=== PATIENT | female | born 1970 | race Caucasian/White ===

== ENCOUNTER 2022-11-14 14:13 | Emergency (ER) | payer BC ==
[~2022-11-14] VITALS: Ht 167 cm; Wt 63.5 kg
[~2022-11-14 14:13] MED LIST: CIPR-226 PO; CIPR500T78 PO; HYDR-1231 PO; MIRA25TA PO; PHEN200T27 PO; SERT100T8 PO
[2022-11-14 14:59] LABS: BASOPHILS % (AUTO) 0 % (0-10); EOSINOPHILS % (AUTO) 0 % (0-10); HEMATOCRIT 34 % (35-52); HEMOGLOBIN 11.3 g/dL (11.5-16.0); LYMPHOCYTES # (AUTO) 0.8 X 10^3 (1.0-4.0); LYMPHOCYTES % (AUTO) 16 % (12-44); MEAN CORPUSCULAR HEMOGLOBIN 28 pg (25-34); MEAN CORPUSCULAR HGB CONC 33 g/dL (32-36); MEAN CORPUSCULAR VOLUME 85 fL (80-99); MEAN PLATELET VOLUME 9.8 fL (9.0-12.2); MONOCYTES # (AUTO) 0.2 X 10^3 (0.0-1.0); MONOCYTES % (AUTO) 3 % (0-12); NEUTROPHILS # (AUTO) 4.3 X 10^3 (1.8-7.8); NEUTROPHILS % (AUTO) 81 % (42-75); PLATELET COUNT 201 10^3/uL (130-400); WHITE BLOOD COUNT 5.3 10^3/uL (4.3-11.0)
[2022-11-14 15:09] LABS: POTASSIUM 4.1 MMOL/L (3.6-5.0)
[2022-11-14 15:11] LABS: CALCIUM 9.2 MG/DL (8.5-10.1)
[2022-11-14 15:15] LABS: CREATININE SERUM 0.94 MG/DL (0.60-1.30)
[2022-11-14 15:17] LABS: ERYTHROCYTE SEDIMENTATION RATE 12 MM/HR (0-30)
[2022-11-14] MEDS ORDERED: LACTATED RINGERS 1,000 ML IV ONE (15:45)
[2022-11-14] MEDS ORDERED: fentaNYL INJ 100 MCG/2 ML AMP IVP ONE (15:45)
--- NOTE | 2022-11-14 15:51 | ED General ---
General Chief Complaint: Lower Extremity Stated Complaint: LT HIP PAIN | POST OP HIP REPLACE - 5 WEEKS OUT Nursing Triage Note: PT PRESENTS TO ED WITH PAIN IN LEFT HIP AND FEVERISH CHILLS THAT BEGAN TODAY. PT HAD HIP REPLACEMENT 5 WEEKS AGO AND IS CONCERNED THE AREA IS INFECTED. PT HAS BEEN ABLE TO WALK WITHOUT ASSISTANCE AND PAIN-FREE FOR THE LAST 5 WEEKS, TODAY PT NEEDS CANE TO WALK. 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 Source of Information: Patient Exam Limitations: No Limitations History of Present Illness Date Seen by Provider: Nov 14, 2022 Allergies and Home Medications Allergies Coded Allergies: No Known Drug Allergies (Unverified , 11/28/13) Patient Home Medication List Ciprofloxacin HCl (Cipro) 250 Mg Tablet, 250 MG PO BID Prescribed by: FLORIDALMA SIMS on 01/01/14904 Mirabegron (Myrbetriq) 25 Mg Tab.er.24h, 25 MG PO DAILY, (Reported) Entered as Reported by: SHERRY VILLA on 11/28/13 0510 Phenazopyridine Hcl (Pyridium) 200 Mg Tablet, 1 EACH PO TID PRN PRN for SPASMS Prescribed by: FLORIDALMA SIMS on 01/01/14904 Sertraline Hcl (Sertraline Hcl) 100 Mg Tablet, 100 MG PO DAILY, (Reported) Entered as Reported by: SHERRY VILLA on 11/28/13 0510 Past Zucgwxf-Avhftx-Plwtiz Hx Patient Social History Tobacco Use?: No Substance use?: No Alcohol Use?: No Pt feels they are or have been: No Past Medical History Reproductive Disorders: No Bladder Infection Physical Exam Vital Signs Vital Signs - First Documented 11/14/22 14:23 Temp 36.7 Pulse 86 Resp 18 B/P (MAP) 92/67 (75) Pulse Ox 98 Capillary Refill : Height, Weight, BMI Height: 5'6.00" Weight: 137lbs. oz. [id number]; 22.00 BMI Method:Stated Focused Exam Lactate Level 11/14/22 16:05: Lactic Acid Level 1.41 Lactic Acid Level Laboratory Tests Test 11/14/22 16:05 Lactic Acid Level 1.41 MMOL/L (0.50-2.00) Progress/Results/Core Measures Suspected Sepsis SIRS Temperature: Pulse: 86 Respiratory Rate: 18 Laboratory Tests 11/14/22 14:50: White Blood Count 5.3 Blood Pressure 92 /67 Mean: 75 11/14/22 16:05: Lactic Acid Level 1.41 Laboratory Tests 11/14/22 14:50: Creatinine 0.94, Platelet Count 201 Results/Orders Lab Results Laboratory Tests Test 11/14/22 14:50 11/14/22 16:05 11/14/22 16:30 Range/Units White Blood Count 5.3 4.3-11.0 10^3/uL Red Blood Count 4.03 3.80-5.11 10^6/uL Hemoglobin 11.3 L 11.5-16.0 g/dL Hematocrit 34 L 35-52 % Mean Corpuscular Volume 85 80-99 fL Mean Corpuscular Hemoglobin 28 25-34 pg Mean Corpuscular Hemoglobin Concent 33 32-36 g/dL Red Cell Distribution Width 13.2 10.0-14.5 % Platelet Count 201 130-400 10^3/uL Mean Platelet Volume 9.8 9.0-12.2 fL Immature Granulocyte % (Auto) 0 % Neutrophils (%) (Auto) 81 H 42-75 % Lymphocytes (%) (Auto) 16 12-44 % Monocytes (%) (Auto) 3 0-12 % Eosinophils (%) (Auto) 0 0-10 % Basophils (%) (Auto) 0 0-10 % Neutrophils # (Auto) 4.3 1.8-7.8 X 10^3 Lymphocytes # (Auto) 0.8 L 1.0-4.0 X 10^3 Monocytes # (Auto) 0.2 0.0-1.0 X 10^3 Eosinophils # (Auto) 0.0 0.0-0.3 10^3/uL Basophils # (Auto) 0.0 0.0-0.1 10^3/uL Immature Granulocyte # (Auto) 0.0 0.0-0.1 10^3/uL Erythrocyte Sedimentation Rate 12 0-30 MM/HR Sodium Level 139 135-145 MMOL/L Potassium Level 4.1 3.6-5.0 MMOL/L Chloride Level 102 98-107 MMOL/L Carbon Dioxide Level 27 21-32 MMOL/L Anion Gap 10 5-14 MMOL/L Blood Urea Nitrogen 12 7-18 MG/DL Creatinine 0.94 0.60-1.30 MG/DL Estimat Glomerular Filtration Rate 73 BUN/Creatinine Ratio 13 Glucose Level 113 H 70-105 MG/DL Calcium Level 9.2 8.5-10.1 MG/DL C-Reactive Protein High Sensitivity 0.09 0.00-0.50 MG/DL Lactic Acid Level 1.41 0.50-2.00 MMOL/L Influenza Type A (RT-PCR) Not Detected Not Detecte Influenza Type B (RT-PCR) Not Detected Not Detecte SARS-CoV-2 RNA (RT-PCR) Not Detected Not Detecte My Orders Orders - GAYATRI LAWS MD Ed Iv/Invasive Line Start (11/14/22 14:37) Basic Metabolic Panel (11/14/22 14:37) Cbc With Automated Diff (11/14/22 14:37) Hs C Reactive Protein (11/14/22 14:37) Erythrocyte Sedimentation Rate (11/14/22 14:37) Blood Culture (11/14/22 15:40) Urinalysis (11/14/22 15:40) Urine Culture (11/14/22 15:40) Vital Signs Adult Sepsis Patie Q15M (11/14/22 15:40) Remove Rings In Anticipation O (11/14/22 15:40) Lactic Acid Analyzer (11/14/22 15:40) Fentanyl Inj (Sublimaze Injection) (11/14/22 15:45) Lactated Ringers (Lr 1000 Ml Iv Solution (11/14/22 15:45) Covid 19 Inhouse Test (11/14/22 15:51) Influenza A And B By Pcr (11/14/22 15:51) Clindamycin 900 Mg/50 Ml Ivpb (Cleocin P (11/14/22 16:30) Medications Given in ED Current Medications Medications Dose Ordered Sig/Gunjan Route Start Time Stop Time Status Last Admin Dose Admin Clindamycin Phosphate/Dextrose 50 ml @ 100 mls/hr ONCE ONCE IV 11/14/22 16:30 11/14/22 16:59 11/14/22 16:33 100 MLS/HR Fentanyl Citrate 50 mcg ONCE ONCE IVP 11/14/22 15:45 11/14/22 15:46 DC 11/14/22 15:57 50 MCG Lactated Ringer's 1,000 ml @ 0 mls/hr Q0M ONCE IV 11/14/22 15:45 11/14/22 15:46 DC 11/14/22 15:57 1,000 MLS/HR Vital Signs/I&O 11/14/22 14:23 Temp 36.7 Pulse 86 Resp 18 B/P (MAP) 92/67 (75) Pulse Ox 98 Capillary Refill : Blood Pressure Mean: 75 Departure Impression Primary Impression: Cellulitis Qualified Codes: L03.116 - Cellulitis of left lower limb Additional Impression: Postoperative pain Disposition: HOME, SELF-CARE Condition: Stable Departure-Patient Inst. Decision time for Depature: 16:52 Referrals: NO,LOCAL PHYSICIAN (PCP) Primary Care Physician GISEL ESCOBAR MD (Family) Primary Care Physician Patient Instructions: Cellulitis (Skin Infection), Adult ED Add. Discharge Instructions: Continue taking clindamycin as prescribed. For primary pain control you may use ibuprofen up to 600 mg every 6 hours as n eeded. Add hydrocodone as prescribed for pain not controlled by ibuprofen. Follow-up with Dr. Warren in the clinic on Monday as directed. If you develop worsening symptoms such as escalating pain not responsive to pain medication, worsening swelling and redness at the surgical site, persistent fevers greater than 100.3, etc., please seek assistance at the [place] emergency room. All discharge instructions reviewed with patient and/or family. Voiced understanding. Scripts Hydrocodone/Acetaminophen (Hydrocodone-Acetamin 7.5-325) 7.5 Mg-325 Mg Tablet 1 EACH PO Q6H PRN for PAIN-BREAKTHROUGH, #20 TAB Prov: GAYATRI LAWS MD 11/14/22 Clindamycin HCl (Clindamycin HCl) 300 Mg Capsule 300 MG PO QID, #40 CAP Prov: GAYATRI LAWS MD 11/14/22 GAYATRI LAWS MD Nov 14, 2022 15:51
[2022-11-14] MEDS ORDERED: CLINDAMYCIN 900 MG/50 ML IVPB 50 ML IV ONE (16:30)
[2022-11-14 16:35] LABS: BILIRUBIN,URINE NEGATIVE (NEGATIVE); CLARITY,URINE CLOUDY; COLOR,URINE YELLOW; GLUCOSE, URINE (UA) NEGATIVE (NEGATIVE); KETONES,URINE NEGATIVE (NEGATIVE); LEUKOCYTE ESTERASE ,URINE 1+ (NEGATIVE); NITRITE,URINE POSITIVE (NEGATIVE); PROTEIN,URINE NEGATIVE (NEGATIVE)
[2022-11-14] MEDS ORDERED: CLIN-144 PO (16:56)
[2022-11-14] MEDS ORDERED: HYDR-3817 PO (16:56)
[2022-11-14] MEDS ORDERED: KETOROLAC 30 MG/ML VIAL IVP ONE (17:00)
[2022-11-14 17:03] LABS: BACTERIA,URINE LARGE /HPF; RBC,URINE 0-2 /HPF
[2022-11-14 17:04] LABS: HYALINE CASTS, URINE 0-2 /LPF
[2022-11-14 17:32] VITALS: BP 119/72
== END 2022-11-14 17:35 | disposition home or self-care (01) ==
LOC: EDUNIT# 14:13 → ER 14:18
DX: L03.116 Cellulitis of left lower limb (principal); G89.18 Other acute postprocedural pain; Z20.822 Contact with and (suspected) exposure to COVID-19
CPT/HCPCS: 36415; 80048; 81000; 83605; 85025; 85652; 86141; 87040; 87088; 87636

== ENCOUNTER 2022-12-29 13:49 | Outpatient (RCR) | payer BC ==
[2022-12-21 11:40] VITALS: BP 145/75
[2022-12-21 12:39] LABS: HEMATOCRIT 36 % (35-52); HEMOGLOBIN 11.3 g/dL (11.5-16.0); MEAN CORPUSCULAR HEMOGLOBIN 26 pg (25-34); MEAN CORPUSCULAR HGB CONC 32 g/dL (32-36); MEAN CORPUSCULAR VOLUME 81 fL (80-99); PLATELET COUNT 310 10^3/uL (130-400); WHITE BLOOD COUNT 4.6 10^3/uL (4.3-11.0)
[2022-12-21 12:52] LABS: CALCIUM 9.5 MG/DL (8.5-10.1)
[2022-12-21 12:56] LABS: CREATININE SERUM 0.74 MG/DL (0.60-1.30)
[2022-12-21 13:03] LABS: ERYTHROCYTE SEDIMENTATION RATE 24 MM/HR (0-30)
[2022-12-29 13:45] VITALS: BP 0/0
[~2022-12-29 13:49] MED LIST changes: +CLIN-144 PO; +HYDR-3817 PO
== END 2023-01-19 | disposition home or self-care (01) ==
LOC: SDC 13:49
PROVIDERS: ATTEND Specialist
DX: L02.416 Cutaneous abscess of left lower limb (principal)
CPT/HCPCS: 80048; 85027; 85652; 86141; G0463; 36415; 99211